=== PATIENT | male | born 2000 | race Caucasian/White ===

== ENCOUNTER → 2020-09-09 12:57 | Outpatient (CLI) | payer OTHER, SELFPAY | PROVIDERS: Visit Provider Nurse Practitioner Family | DX: Z20.822 Contact with and (suspected) exposure to COVID-19 (principal) | CPT/HCPCS: U0003 ==

== ENCOUNTER → 2021-04-10 15:36 | Outpatient (CLI) | payer OTHER, SELFPAY | PROVIDERS: Visit Provider Physician Assistant Surgical | DX: U07.1 COVID-19 (principal) | CPT/HCPCS: C9803; U0003; U0005 ==

== ENCOUNTER 2021-11-17 08:39 | Emergency (ER) | payer SELFPAY ==
--- NOTE | 2021-11-17 08:49 | PC.NURSE ---
Patient refused x-ray
[2021-11-17 08:50] VITALS: BP 126/69; PULSE 65; RESP 18; TEMP 36.8; O2SAT 98; BMI 21.9
--- NOTE | 2021-11-17 09:22 | HMH.EDUTC ---
[facility] [place] Clinical Impression: Finger problem Disposition: Home, Self-Care Condition on Discharge: Good Instructions: How To Perform RICE (Rest, Ice, Compress, Elevate), Ibuprofen, Clindamycin Additional Instructions: Clean area well with antibacterial soap and water and pat dry Follow up with Family Doctor immediately if any worsening of symptoms Return if needed Straight to ER if any life threatening symptoms Do not be alarmed if your fingernail Elevate hand to help with swelling and pain Prescriptions: clindamycin HCL [Cleocin HCl] 300 mg PO Q8H 7 Days #21 cap Transmission Status: Pending to [facility] Referrals: Provider,Referral, [Primary Care Provider] - As needed Forms: Work/School Release Time of Disposition: 09:43 Medical Decision Making - Ulises Inquiry Pt receiving controlled substance: No Ulises was queried for this patient: No Vital Signs: 11/17/21 08:50 Temperature 98.2 F Temperature Source Oral Pulse Rate [Right Brachial] 65 Respiratory Rate 18 Blood Pressure [Right Arm] 126/69 Blood Pressure Mean [Right Arm] 88 Blood Pressure Source [Right Arm] Automatic Cuff Blood Pressure Position [Right Arm] Sitting 02 Sat by Pulse Oximetry 98 Oxygen Delivery Method Room Air Medical Decision Narrative: Recommended xray and patient refused States that he did not have any insurance and just wanted to make sure there was no infection Discussed with patient about risk of crush injury and patient verbalized understanding and still refused xray [facility] [place] - General Stated complaint: WC 11/12 finger injury Time Seen by Provider: 11/17/21 09:22 Mode of Arrival: Ambulatory Source of Information: Patient Limitations: No Limitations Description of Symptoms (Recalled from Triage Doc. by RN): PATIENT STATES ON MONDAY HE SMASHED HIS LEFT MIDDLE FINGER WHILE AT WORK. SWELLING AND BRUISING NOTED TO FINGERNAIL AREA HEENT Symptoms (Recalled from RN notes): No Resp Symptoms (Recalled from RN notes): No Skin Symptoms (Recalled from RN notes): No MS Symptoms (Recalled from RN notes): Yes Functional Status (Recalled from RN notes): WNL - History of Present Illness Provider Complaint: Patient states that last Monday he smashed his left middle finger States that ever since he has been having swelling and tenderness and noticed he had a lot of dark blood under his nail States that he was worried that it may be getting infected so he came in to get it checked out - Related Data Previous Rx's Medication Instructions Recorded clindamycin HCL [Cleocin HCl] 300 mg PO Q8H 7 Days #21 cap 11/17/21 Allergies Allergy/AdvReac Type Severity Reaction Status Date / Time amoxicillin Allergy Verified 09/09/20 12:13 - Worker's Comp Is this a Worker's Comp case?: No [facility] History - Hepatitis A Screen Attestation statement:: This patient has been screened for Hepatitis A risk factors. I have reviewed the patient's past medical history: Yes Other Surgeries: Yes: No Previous Surgery - Social History Smoking Status: Never smoker Alcohol Intake: never Substance Use Type: denies use Occupational Status: other Family Hx:: Cancer, Heart Attack, Hypertension ROS Obtained: Yes All systems reviewed & no additional complaints, Yes Systems reviewed as appropriate & no additional complaints - Constitutional Constitutional: Reports system reviewed and no additional complaints, except as docu, Denies body ache, Denies chills, Denies fever(s) - Cardiovascular Cardiovascular: Reports system reviewed and no additional complaints, except as docu - Respiratory Respiratory: Reports system reviewed and no additional complaints, except as docu - Integumentary/Breasts Skin/Breast: Reports system reviewed and no additional complaints, except as docu, Reports other Comments: swelling and bruising to left middle finger Physical Exam - General General appearance: alert, in no apparent distress - Resp
[2021-11-17 09:49] VITALS: BP 126/69; PULSE 65; RESP 18; TEMP 36.8; O2SAT 98
== END 2021-11-17 09:53 | disposition home or self-care (01) ==
PROVIDERS: Emergency Provider Nurse Practitioner
DX: M79.89 Other specified soft tissue disorders (principal); S60.132A Contusion of left middle finger with damage to nail, initial encounter; S67.193A Crushing injury of left middle finger, initial encounter; X58.XXXA Exposure to other specified factors, initial encounter; Y99.0 Civilian activity done for income or pay; Z88.1 Allergy status to other antibiotic agents
CPT/HCPCS: 11730; 99213; G0463

== ENCOUNTER 2022-02-05 08:54 | Emergency (ER) | payer SELFPAY ==
[2022-02-05 09:07] VITALS: BP 127/68; PULSE 81; RESP 16; TEMP 36.8; O2SAT 100; BMI 21.9
--- NOTE | 2022-02-05 09:29 | EXP.UTC ---
Discharge Plan Disposition Patient Disposition: Home, Self-Care Condition: Good Prescriptions Prescriptions: No Action clindamycin HCl 300 MG capsule 300 mg PO Q8H 7 Days Qty: 21 0RF Referrals Follow up/Referrals: Provider,Referral, [Primary Care Provider] - See instructions Activity Restrictions/Add. Instructions Additional Instructions/Restrictions: Take medication as prescribed. Take Benadry every 4 hours until rash is gone. Clinical Impressions Clinical Impression: Allergic reaction Qualifiers: Encounter type: initial encounter Qualified Code(s): T78.40XA - Allergy, unspecified, initial encounter Instructions Patient Instructions: Diphenhydramine Discharge ED Provider: Marion Abreu [facility] General Stated complaint: Rash on body Mode of Arrival: Ambulatory Source of Information: Patient Limitations: No Limitations Time Seen by Provider: 02/05/22 09:23 Description of Symptoms (Recalled from Triage Doc. by RN): pt comes in with c/o rash all over body. pt states that he noticed it yesterday around lunchtime at work. pt was eating in breakroom and noticed a rash start on his elbows. it has now spread to face, legs, arms, chest, abdomen. pt also states that his knucles on both hands are swollen. HEENT Symptoms (Recalled from RN notes): No Resp Symptoms (Recalled from RN notes): No Skin Symptoms (Recalled from RN notes): Yes MS Symptoms (Recalled from RN notes): No Functional Status (Recalled from RN notes): n/a History of Present Illness Provider Complaint: Pt relates that he noticed the rash start yesterday at lunchtime on his elbows and then the rash proceeded to spread all over his body. He states that he took a Benadryl last night. He further reports that he has switched to different detergent recently and has been taking OTC cold medication. He states that he has not been around anyone else who has had similar symptoms. Related Data Previous Rx's Medication Instructions Recorded clindamycin HCl 300 mg capsule 300 mg PO Q8H 7 days #21 caps 11/17/21 Allergies Allergy/AdvReac Type Severity Reaction Status Date / Time amoxicillin Allergy Verified 09/09/20 12:13 Penicillins Allergy Verified 02/05/22 09:13 Worker's Comp Is this a Worker's Comp case?: No PFSH PFSH Social History Smoking Status: Never smoker alcohol intake: never substance use type: denies use current occupational status: other Travel in the last 8 weeks: None ROS Obtained: Yes All systems reviewed & no additional complaints except as documented Constitutional Constitutional: Reports as per HPI Eyes Eyes: Reports itchy eyes ENT Ears, Nose, Mouth, and Throat: Denies lip swelling, Reports nasal discharge, Denies throat swelling and Denies tongue swelling Cardiovascular Cardiovascular: Reports system reviewed and no additional complaints, except as documented Respiratory Respiratory: Reports system reviewed and no additional complaints, except as documented, Denies pain with breathing and Denies wheezing Gastrointestinal Gastrointestingal: Reports system reviewed and no additional complaints, except as documented Musculoskeletal Musculoskeletal: Reports system reviewed and no additional complaints, except as documented Integumentary/Breasts Skin/Breast: Reports as per HPI, Reports pruritus, Reports rash and Reports skin swelling Neurologic Neurologic: Reports system reviewed and no additional complaints, except as documented Endocrine Endocrine: Reports system reviewed and no additional complaints, except as documented Hematologic/Lymphatic Henatologic/Lymphatic: Reports system reviewed and no additional complaints, except as documented Allergic/Immunologic Allergic/Immunologic: Reports as per HPI, Reports itchy eyes, Denies lip swelling, Reports seasonal rhinorrhea, Denies throat swelling, Denies tongue swelling, Reports urticaria and Denies wheezing P
[2022-02-05 09:48] VITALS: BP 127/68; PULSE 81; RESP 16; TEMP 36.8
== END 2022-02-05 09:49 | disposition home or self-care (01) ==
PROVIDERS: Emergency Provider Nurse Practitioner Family
DX: T78.40XA Allergy, unspecified, initial encounter (principal); R21 Rash and other nonspecific skin eruption; Z88.0 Allergy status to penicillin; Z88.1 Allergy status to other antibiotic agents; Z88.3 Allergy status to other anti-infective agents
CPT/HCPCS: 99213; G0463; J1040

== ENCOUNTER 2023-09-05 04:54 | Emergency (ER) | payer BC, SELFPAY ==
[2023-09-05 04:56] VITALS: BP 120/81; PULSE 94; RESP 18; TEMP 36.4; O2SAT 97; BMI 22.2
--- NOTE | 2023-09-05 05:09 | HMH.EDGENADL ---
Discharge Plan Disposition Patient Disposition: Home, Self-Care Prescriptions Prescriptions: New ondansetron HCl 4 mg tablet 4 mg PO Q8H PRN (Reason: nausea and vomiting) 5 Days Qty: 30 0RF No Action clindamycin HCl 300 MG capsule 300 mg PO Q8H 7 Days Qty: 21 0RF Referrals Follow up/Referrals: Provider,Referral, [Primary Care Provider] - See instructions Activity Restrictions/Add. Instructions Additional Instructions/Restrictions: Please follow-up with your primary care provider. Please return to the emergency department if you develop any new or worsening symptoms or become concerned for your health. Please take Zofran as needed for nausea and vomiting. Clinical Impressions Clinical Impression: Nausea vomiting and diarrhea Stand Alone Forms Stand Alone Forms: Work/School Release Instructions Patient Instructions: DI for Diarrhea and Traveler's Diarrhea -- Adult, DI for Diarrhea and Traveler's Diarrhea -- Child, DI for Nausea -- Adult, DI for Nausea -- Child Discharge ED Provider: Sanjeev Last General Adult HPI General Chief complaint: Nausea/Vomiting/Diarrhea Stated complaint: vomiting, diahrrea, unable to sleep, chills Time Seen by Provider: 09/05/23 05:00 Mode of Arrival: Ambulatory Source of Information: Patient Limitations: No Limitations Description of Symptoms (Recalled from ER Triage Doc. by RN): Pt presents to ED for N/V/D since approx 0230 am. Pt states he has not been in contact with anyone sick. Pt is A&O*4. History of Present Illness HPI narrative: 23-year-old male without significant past medical history presents for nausea vomiting diarrhea for the last several hours. He reports that he has a couple of kids both of them have been sick recently. He denies any significant abdominal pain. He reports that he saw some flecks of blood with some of his vomiting but denies any large-volume hematemesis. He reports the diarrhea is nonbloody. He reports that he had a similar episode like this about a year ago and it took several days to recover. He has not taken any medications prior to arrival. He denies any history of abdominal surgery. Related Data Previous Rx's Medication Instructions Recorded clindamycin HCl 300 mg capsule 300 mg PO Q8H 7 days #21 caps 11/17/21 ondansetron HCl 4 mg tablet 4 mg PO Q8H PRN nausea and 09/05/23 vomiting 5 days #30 tabs Allergies Allergy/AdvReac Type Severity Reaction Status Date / Time amoxicillin Allergy Verified 09/09/20 12:13 Penicillins Allergy Verified 02/05/22 09:13 [facility] Disclaimer: The information contained in this section may have been updated after the patient was seen, as this information can be updated by other users. Social History Smoking Status: Current some day smoker alcohol intake: never substance use type: denies use current occupational status: other Travel in the last 8 weeks: None ROS Obtained: Yes All systems reviewed & no additional complaints except as documented Physical Exam General General appearance: alert and in no apparent distress Head Head exam: atraumatic and normocephalic Eye Eye exam: Present normal appearance, PERRL and EOMI ENT ENT exam: Present normal oropharynx and normal external ear exam Neck Neck exam: Present normal inspection and full ROM Chest Chest inspection: Present normal inspection and symmetric chest wall rise; Absent tenderness Respiratory Respiratory exam: Present normal lung sounds bilaterally; Absent respiratory distress Cardiovascular Cardiovascular exam: Present regular rate and normal rhythm Abdominal Exam Abdominal exam: Present soft; Absent distention, tenderness or guarding Extremities Exam Extremities exam: Present normal inspection; Absent edema or joint swelling Back Exam Back exam: Present normal inspection; Absent tenderness Neurological Exam Neurological exam: Present alert and oriented X3; Absent motor sensory deficit Psychiatric Psychiatric exam: Present normal affect and normal mood Skin Skin exam: Present warm, dry and normal color Lymphatic Lymphatic Findings: no adenopathy Medical Decision Making Medical Records Medical records reviewed: Yes I reviewed the patient's medical records. Ulises Inquiry Pt receiving controlled substance: No Ulises was queried for this patient: No Vital Signs: 09/05/23 04:56 09/05/23 05:13 Temperature 97.6 F 97.6 F Temperature Source Oral Oral Pulse Rate 94 H Pulse Rate [Left] 94 H Respiratory Rate 18 16 Blood Pressure 120/81 Blood Pressure [Right Arm] 120/81 Blood Pressure Mean [Right Arm] 94 02 Sat by Pulse Oximetry 97 Oxygen Delivery Method Room Air Lab Data Lab results reviewed: Yes I reviewed the patient's lab results. Orders (Tests/Meds): ED MEDICATIONS Discontinued Medications Generic Name Dose Route Start Last Admin Trade Name Freq PRN Reason Stop Dose Admin Ondansetron HCl 4 mg 09/05/23 05:10 09/05/23 05:17 Ondansetron 4mg/2ml Vial IV 09/05/23 05:11 4 mg ONCE ONE Administration Medical Decision Narrative: 23-year-old male without significant past medical history presents for several hours of nausea vomiting and diarrhea. History was obtained interactive discussion with patient. On arrival, patient is [afebrile, hemodynamically stable, satting appropriately, alert, oriented x4, GCS 15], moving all extremities spontaneously. Full physical exam performed and significant for completely benign abdominal exam. Patient tolerating Gatorade at bedside. Differential includes but is not limited to gastroenteritis, pancreatitis, cholecystitis, Marielena-Zaldivar tear. Patient was given IV Zofran for symptomatic management and correction of underlying abnormalities. Workup including labs and CT abdomen pelvis was considered, but deemed unnecessary due to history and physical exam. Further medication interventions were considered but deemed unnecessary given the patient is tolerating p.o. at bedside. Given patient history, exam and workup, patient's presentation most likely represents acute gastroenteritis with possible Marielena-Zaldivar tear. Extensive discussion was had with patient regarding his symptoms. Patient discharged in stable condition with prescription for Zofran. Procedures Risk/Benefits of Procedure(s) Were Explained: Yes Critical Care Critical Care Time Critical Care Time: No
[2023-09-05 05:13] VITALS: BP 120/81; PULSE 94; RESP 16; TEMP 36.4; O2SAT 97
[2023-09-05] MEDS: ONDANSETRON 4MG/2ML VIAL 4 MG IV (05:17)
== END 2023-09-05 05:22 | disposition home or self-care (01) ==
PROVIDERS: Emergency Provider Emergency Medicine
DX: R11.2 Nausea with vomiting, unspecified (principal); R19.7 Diarrhea, unspecified; F17.210 Nicotine dependence, cigarettes, uncomplicated
CPT/HCPCS: 96374; 99284; J2405

== ENCOUNTER 2023-09-06 16:03 | Outpatient (CLI) | payer BC, SELFPAY ==
[2023-09-06 18:19] LABS: Basophils % 0.5 % (0.1-2.0); Eosinophils # 0.1 K/mm3 (0.0-0.4); Eosinophils % 2.2 % (0.1-12.0); Hematocrit 43.3 % (42.0-52.0); Hemoglobin 14.4 g/dL (14.1-18.0); Lymphocytes # 1.7 K/mm3 (0.7-4.5); Lymphocytes % 29.1 % (10-50); Mean Corpuscular HGB Conc 33.3 g/dL (31.8-35.4); Mean Corpuscular Hemoglobin 32.3 pg (27.0-31.2); Mean Corpuscular Volume 97.1 fl (80-94); Mean Platelet Volume 10.5 fl (7.4-10.4); Monocytes # 0.4 K/mm3 (0.1-1.0); Monocytes % 6.7 % (1.7-9.3); Neutrophils # 3.7 K/mm3 (1.8-7.8); Neutrophils % 61.4 % (37.0-80.0); Platelet Count 223 K/mm3 (142-424); Red Blood Count 4.46 M/mm3 (4.60-6.20); Red Cell Distribution Width 13.7 % (11.5-17.5); White Blood Count 5.9 K/mm3 (4.8-10.8)
[2023-09-06 18:28] LABS: Alanine Aminotransferase 25 U/L (12-78); Albumin Level 4.7 g/dl (3.5-5.0); Alkaline Phosphatase 52 U/L (38-126); Anion Gap 13.3 mEq/L (5-15); Aspartate Amino Transferase 31 U/L (17-59); Bilirubin,Direct 0.1 mg/dl (0.0-0.4); Bilirubin,Indirect 0.7 mg/dL (0.0-0.9); Bilirubin,Total 0.8 mg/dl (0.2-1.3); Bilirubin,Unconjugated 0.6 mg/dL (0.0-1.1); Blood Urea Nitrogen 18 mg/dl (9-20); Calcium 9.8 mg/dl (8.4-10.2); Carbon Dioxide 31 mmol/L (22.0-30.0); Chloride 105 mmol/L (98-107); Chol/HDL Ratio 2.9 (1-3.5); Cholesterol 105 mg/dl (140-200); Estimated Glomerular Filt Rate 92 ml/min (>60); GFR (African American) 111 ML/MIN (>60); Globulin 2.3 g/dL (1.3-3.2); Glucose 91 mg/dl (74-100); HDL Cholesterol 36 mg/dl (40-60); Potassium 4.3 mmoL/L (3.5-5.1); Sodium 145 mmol/L (136-145); Triglycerides 76 mg/dl (30-150); VLDL Cholesterol 15 mg/dL (0-40)
[2023-09-06 18:41] LABS: Direct LDL Cholesterol 47.79 mg/dL (100-129)
[2023-09-06 18:49] LABS: 25-OH Vitamin D, Total 32.1 ng/mL (30-100)
== END 2023-09-06 23:59 | disposition home or self-care (01) ==
LOC: LAB.DROPOF 09-07 16:04
PROVIDERS: PCP Nurse Practitioner Family; Visit Provider Nurse Practitioner Family
DX: R10.9 Unspecified abdominal pain (principal); R11.2 Nausea with vomiting, unspecified; R14.0 Abdominal distension (gaseous); R19.7 Diarrhea, unspecified
CPT/HCPCS: 80053; 80061; 80076; 82306; 84443; 85025; 87086